=== PATIENT | female | born 1945 | race Caucasian/White ===

== ENCOUNTER 2023-04-19 15:10 | Inpatient (IN) | payer MEDICARE, OTHER ==
[~2023-04-19] VITALS: Ht 160 cm; Wt 61.7 kg
[~2023-04-19 15:10] MED LIST: ACET-868 PO; ASPI-807 PO; CRAN450C PO; DOCU100C58 PO; GLIP5TAB13 PO; MAGN400O6 PO; METF500T PO; SIMV-46 PO
[2023-04-19 16:56] LABS: BASOPHILS # (AUTO) 0.1 K/uL (0.0-0.2); EOSINOPHILS # (AUTO) 0.3 K/uL (0.0-0.7); EOSINOPHILS % (AUTO) 4.8 % (0.0-6.0); HEMATOCRIT 37 % (33-45); HEMOGLOBIN 12.2 g/dL (11.5-14.8); LYMPHOCYTES # (AUTO) 1.8 K/uL (0.8-4.8); LYMPHOCYTES % (AUTO) 33.7 % (20.0-44.0); MEAN CORPUSCULAR HEMOGLOBIN 28 PG (26.0-33.0); MEAN CORPUSCULAR HGB CONC 33 g/dl (31.0-36.0); MEAN CORPUSCULAR VOLUME 82 fL (82-100); MONOCYTES # (AUTO) 0.7 K/uL (0.1-1.30); MONOCYTES % (AUTO) 12.1 % (2.0-12.0); NEUTROPHILS # (AUTO) 2.6 K/uL (1.8-8.9); NEUTROPHILS % (AUTO) 48.4 % (43.0-81.0); PLATELET COUNT (AUTO) 239 K/uL (150-450); RED BLOOD CELL COUNT(AUTO) 4.44 MIL/uL (4.0-5.2); RED CELL DISTRIBUTION WIDTH 15.2 % (11.5-15.0); WHITE BLOOD COUNT (AUTO) 5.5 K/uL (4.3-11.0)
[2023-04-19 17:13] LABS: CALCIUM, SERUM 9.2 mg/dL (8.5-10.1); CARBON DIOXIDE 23 mmol/L (21-32); CHLORIDE 91 mmol/L (98-107); CREATININE 0.6 mg/dL (0.6-1.3); GLUCOSE 103 mg/dL (74-106); POTASSIUM 4.2 mmol/L (3.5-5.1); SODIUM SERUM 121 mmol/L (136-145); UREA NITROGEN, BLOOD 9 mg/dL (7-18)
[2023-04-19 17:27] LABS: ALANINE AMINOTRANSFERASE 10 U/L (12-78); ALBUMIN 3.4 g/dL (3.4-5.0); ALKALINE PHOSPHATASE 53 U/L (46-116); ASPARTATE AMINOTRANSFERASE 12 U/L (15-37); BILIRUBIN,DIRECT 0.1 mg/dL (0.0-0.2); BILIRUBIN,TOTAL 0.4 mg/dL (0.2-1.0); TOTAL PROTEIN, SERUM 6.7 g/dL (6.4-8.2)
[2023-04-19 17:28] LABS: ACETAMINOPHEN <10 ug/ml (10-30); ALCOHOL, BLOOD < 3 mg/dL (0-10); SALICYLATE < 2.3 mg/dL (2.8-20.0)
[2023-04-19] MEDS ORDERED: IV NS 0.9% 1,000 ML IV ONE (18:00)
[2023-04-19] MEDS ORDERED: MORPHINE SULFATE INJ 2 MG/ML DISP.SYRIN IV PRN (18:30)
[2023-04-19] MEDS ORDERED: IV NS 0.9% 1,000 ML IV SCH (18:30)
[2023-04-19] MEDS ORDERED: DEXTROSE 50%-WATER 50 ML DISP.SYRIN IV PRN (18:30)
[2023-04-19] MEDS ORDERED: ONDANSETRON HCL/PF 4 MG/2 ML VIAL IVP PRN (18:30)
[2023-04-19] MEDS ORDERED: MAGNESIUM HYDROXIDE 30 ML UDC PO PRN (18:30)
[2023-04-19] MEDS ORDERED: ACETAMINOPHEN 325 MG TABLET PO PRN (18:30)
[2023-04-19] MEDS: BLOOD SUGAR DIAGNOSTIC 1 EACH STRIP IN SCH (22:29)
[2023-04-19] MEDS: ENOXAPARIN SODIUM 40 MG/0.4 ML DISP.SYRIN SQ SCH (22:30)
[2023-04-19 22:35] VITALS: BP 190/100; TEMP 98; O2SAT 98
[2023-04-19] MEDS: hydrALAZINE HCL IV 20 MG VIAL IV PRN (22:37)
[2023-04-20] VITALS: BP 160/75; TEMP 98; O2SAT 98
[2023-04-20 04:00] VITALS: BP 178/79; TEMP 98; O2SAT 99
[2023-04-20] MEDS: hydrALAZINE HCL IV 20 MG VIAL IV PRN (04:40)
[2023-04-20 06:00] VITALS: BP 158/68
[2023-04-20 06:43] LABS: BASOPHILS % (AUTO) 0.7 % (0.0-2.0); EOSINOPHILS # (AUTO) 0.1 K/uL (0.0-0.7); EOSINOPHILS % (AUTO) 1.7 % (0.0-6.0); HEMATOCRIT 40 % (33-45); HEMOGLOBIN 13.6 g/dL (11.5-14.8); LYMPHOCYTES # (AUTO) 1.3 K/uL (0.8-4.8); LYMPHOCYTES % (AUTO) 16.7 % (20.0-44.0); MEAN CORPUSCULAR HEMOGLOBIN 28 PG (26.0-33.0); MEAN CORPUSCULAR HGB CONC 34 g/dl (31.0-36.0); MEAN CORPUSCULAR VOLUME 83 fL (82-100); MONOCYTES # (AUTO) 0.8 K/uL (0.1-1.30); MONOCYTES % (AUTO) 10.2 % (2.0-12.0); NEUTROPHILS # (AUTO) 5.3 K/uL (1.8-8.9); NEUTROPHILS % (AUTO) 70.7 % (43.0-81.0); PLATELET COUNT (AUTO) 244 K/uL (150-450); RED BLOOD CELL COUNT(AUTO) 4.85 MIL/uL (4.0-5.2); RED CELL DISTRIBUTION WIDTH 15.5 % (11.5-15.0); WHITE BLOOD COUNT (AUTO) 7.5 K/uL (4.3-11.0)
[2023-04-20 07:04] LABS: ALBUMIN 3.5 g/dL (3.4-5.0); BILIRUBIN,TOTAL 0.6 mg/dL (0.2-1.0); CREATININE 0.6 mg/dL (0.6-1.3); MAGNESIUM 1.9 mg/dL (1.8-2.4); POTASSIUM 3.5 mmol/L (3.5-5.1); TOTAL PROTEIN, SERUM 6.9 g/dL (6.4-8.2)
[2023-04-20] MEDS ORDERED: IV D5/0.45 NACL 1,000 ML IV PRN (07:30)
[2023-04-20 08:00] VITALS: BP 153/81; TEMP 98.1; O2SAT 93
[2023-04-20] MEDS: BLOOD SUGAR DIAGNOSTIC 1 EACH STRIP IN SCH ×4 (08:00→21:30)
[2023-04-20] MEDS: INSULIN REGULAR, HUMAN 100 UNIT/ML 3 ML VIAL SQ PRN ×3 (08:01→17:11)
[2023-04-20] MEDS: ATORVASTATIN 10 MG TABLET PO SCH (08:10)
[2023-04-20] MEDS: ASPIRIN EC 81 MG TABLET.DR PO SCH (08:10)
[2023-04-20] MEDS ORDERED: CRAN425C6 PO (09:02)
[2023-04-20] MEDS ORDERED: LAMO25TA5 PO (09:02)
[2023-04-20] MEDS ORDERED: CHOL100043 PO (09:02)
[2023-04-20] MEDS ORDERED: POTA8TAB3 PO (09:02)
[2023-04-20] MEDS ORDERED: SENN-261 PO (09:02)
[2023-04-20] MEDS ORDERED: LORA-259 PO (09:02)
[2023-04-20] MEDS ORDERED: ATOR10TA PO (09:02)
[2023-04-20] MEDS ORDERED: BISA10SU11 RC (09:02)
[2023-04-20] MEDS ORDERED: BENZ0.5T43 PO (09:02)
[2023-04-20] MEDS ORDERED: FLUD0.1T PO (09:02)
[2023-04-20] MEDS ORDERED: ACET-868 PO (09:02)
[2023-04-20] MEDS ORDERED: SODI100037 PO (09:02)
[2023-04-20] MEDS ORDERED: RISP1TAB7 PO (09:02)
[2023-04-20] MEDS ORDERED: PYRI-6 PO (09:02)
[2023-04-20] MEDS ORDERED: MAGN400T8 PO (09:02)
[2023-04-20] MEDS: ENOXAPARIN SODIUM 40 MG/0.4 ML DISP.SYRIN SQ SCH (17:44)
[2023-04-20 21:03] VITALS: BP 143/74; TEMP 98.1; O2SAT 93
[2023-04-21] MEDS: CLONIDINE HCL 0.1 MG TABLET PO PRN ×2 (03:58→15:25)
[2023-04-21 05:06] VITALS: BP 132/78; TEMP 97.8; O2SAT 93
[2023-04-21 06:56] LABS: BASOPHILS # (AUTO) 0.1 K/uL (0.0-0.2); BASOPHILS % (AUTO) 0.9 % (0.0-2.0); EOSINOPHILS # (AUTO) 0.1 K/uL (0.0-0.7); EOSINOPHILS % (AUTO) 1.8 % (0.0-6.0); HEMATOCRIT 37 % (33-45); HEMOGLOBIN 12.5 g/dL (11.5-14.8); LYMPHOCYTES # (AUTO) 1.1 K/uL (0.8-4.8); LYMPHOCYTES % (AUTO) 18.9 % (20.0-44.0); MEAN CORPUSCULAR HEMOGLOBIN 28 PG (26.0-33.0); MEAN CORPUSCULAR HGB CONC 34 g/dl (31.0-36.0); MEAN CORPUSCULAR VOLUME 83 fL (82-100); MONOCYTES # (AUTO) 0.8 K/uL (0.1-1.30); MONOCYTES % (AUTO) 13.7 % (2.0-12.0); NEUTROPHILS # (AUTO) 3.9 K/uL (1.8-8.9); NEUTROPHILS % (AUTO) 64.7 % (43.0-81.0); PLATELET COUNT (AUTO) 224 K/uL (150-450); RED BLOOD CELL COUNT(AUTO) 4.49 MIL/uL (4.0-5.2); RED CELL DISTRIBUTION WIDTH 15.8 % (11.5-15.0)
[2023-04-21 07:19] LABS: CALCIUM, SERUM 9.2 mg/dL (8.5-10.1); CREATININE 0.6 mg/dL (0.6-1.3); MAGNESIUM 2.1 mg/dL (1.8-2.4); PHOSPHORUS 2.8 mg/dL (2.5-4.9); POTASSIUM 3.5 mmol/L (3.5-5.1)
[2023-04-21] MEDS: BLOOD SUGAR DIAGNOSTIC 1 EACH STRIP IN SCH ×3 (08:09→17:22)
[2023-04-21] MEDS: INSULIN REGULAR, HUMAN 100 UNIT/ML 3 ML VIAL SQ PRN ×3 (08:10→17:23)
[2023-04-21] MEDS: ATORVASTATIN 10 MG TABLET PO SCH (08:15)
[2023-04-21] MEDS: ASPIRIN EC 81 MG TABLET.DR PO SCH (08:15)
[2023-04-21 16:50] VITALS: BP 172/82; TEMP 98.2; O2SAT 95
[2023-04-21 16:57] VITALS: BP 172/82
[2023-04-21] MEDS ORDERED: CLONIDINE HCL 0.3 MG/24H PTWK 1 EA PATCH TD SCH (17:00)
[2023-04-21] MEDS ORDERED: hydrALAZINE HCL 50 MG TABLET PO PRN (17:00)
[2023-04-21] MEDS: ENOXAPARIN SODIUM 40 MG/0.4 ML DISP.SYRIN SQ SCH ×2 (17:16→17:24)
[2023-04-22] MEDS ORDERED: ASPI-1420 PO (08:04)
[2023-04-22] MEDS ORDERED: BLOO-668 IN (08:04)
[2023-04-22] MEDS ORDERED: ENOX40DI SQ (08:04)
[2023-04-22] MEDS ORDERED: CLON0.1T PO (08:04)
[2023-04-22] MEDS ORDERED: DEXT50DI8 IV (08:04)
[2023-04-22] MEDS ORDERED: INSU100V3 SQ (08:04)
== END 2023-04-21 18:46 | DRG 641 ==
LOC: ER 16:22 → TELE1 21:01 → MEDSG1 04-20 09:40 → GPS 04-21 15:39
PROVIDERS: ADMIT Internal Medicine; ATTEND Internal Medicine
DX: E87.1 Hypo-osmolality and hyponatremia (principal); E86.1 Hypovolemia; E78.5 Hyperlipidemia, unspecified; Z79.82 Long term (current) use of aspirin; Z79.84 Long term (current) use of oral hypoglycemic drugs; E11.9 Type 2 diabetes mellitus without complications; F79 Unspecified intellectual disabilities; Z88.0 Allergy status to penicillin; Z73.6 Limitation of activities due to disability
CPT/HCPCS: 36415; 71045-TC; 80048-TC; 80053-TC; 80076-TC; 82962-TC; 83735-TC; 84100-TC; 84295-TC; 85025-TC; 87081-TC; A4223; G0378; G0480; J0360; J1650; J1815; J7030

== ENCOUNTER 2023-04-21 19:13 | Inpatient (IN) | payer MEDICARE, OTHER ==
[~2023-04-21] VITALS: Ht 160 cm; Wt 61.7 kg
[~2023-04-21 19:13] MED LIST changes: +ATOR10TA PO; +BENZ0.5T43 PO; +BISA10SU11 RC; +CHOL100043 PO; +CRAN425C6 PO; -CRAN450C PO; -DOCU100C58 PO; +FLUD0.1T PO; -GLIP5TAB13 PO; +LAMO25TA5 PO; +LORA-259 PO; +MAGN400T8 PO; +POTA8TAB3 PO; +PYRI-6 PO; +RISP1TAB7 PO; +SENN-261 PO; -SIMV-46 PO; +SODI100037 PO
[2023-04-21] MEDS ORDERED: ACETAMINOPHEN 325 MG TABLET PO PRN (20:00)
[2023-04-21] MEDS ORDERED: MAG HYDROX/AL HYDROX/SIMETH 30 ML UDC PO PRN (20:00)
[2023-04-21] MEDS ORDERED: LORAZEPAM 0.5 MG TABLET PO PRN (20:00)
[2023-04-21] MEDS ORDERED: MAGNESIUM HYDROXIDE 30 ML UDC PO PRN (20:00)
[2023-04-21] MEDS ORDERED: BLOOD SUGAR DIAGNOSTIC 1 EACH STRIP IN ONE (20:00)
[2023-04-21 20:16] VITALS: BP 197/90; TEMP 98.4; O2SAT 96
[2023-04-21] MEDS: CLONIDINE HCL 0.1 MG TABLET PO PRN (20:22)
[2023-04-21] MEDS: ZOLPIDEM TARTRATE 5 MG TABLET PO PRN (22:31)
[2023-04-22 07:05] LABS: ALBUMIN 3.1 g/dL (3.4-5.0); BILIRUBIN,TOTAL 0.6 mg/dL (0.2-1.0); CREATININE 0.6 mg/dL (0.6-1.3); POTASSIUM 3.7 mmol/L (3.5-5.1); TOTAL PROTEIN, SERUM 6.3 g/dL (6.4-8.2)
[2023-04-22] MEDS: CLONIDINE HCL 0.1 MG TABLET PO PRN ×2 (07:11→20:18)
[2023-04-22 07:21] LABS: CHOLESTEROL 175 mg/dL (<200); HDL CHOLESTEROL 63 mg/dL (40-60); LDL 91 mg/dL (0-99); TRIGLYCERIDES 64 mg/dL (30-150)
[2023-04-22 08:00] VITALS: BP_SYST 154; BP_SYST 207; BP_DIAS 101; BP_DIAS 94; TEMP 97.8; O2SAT 97
[2023-04-22] MEDS ORDERED: ENOX40DI SQ (08:04)
[2023-04-22] MEDS ORDERED: BLOO-668 IN (08:04)
[2023-04-22] MEDS ORDERED: DEXT50DI8 IV (08:04)
[2023-04-22] MEDS ORDERED: ASPI-1420 PO (08:04)
[2023-04-22] MEDS ORDERED: INSU100V3 SQ (08:04)
[2023-04-22] MEDS ORDERED: CLON0.1T PO (08:04)
[2023-04-22] MEDS: LamoTRIgine 25 MG TABLET PO SCH ×2 (10:22→21:15)
[2023-04-22] MEDS ORDERED: BISACODYL SUPP (10 MG) 10 MG/SUPP.RECT SUPP.RECT RC PRN (10:30)
[2023-04-22] MEDS ORDERED: MAGNESIUM HYDROXIDE 30 ML UDC PO PRN (10:30)
[2023-04-22] MEDS ORDERED: ACETAMINOPHEN 325 MG TABLET PO PRN (10:30)
[2023-04-22] MEDS ORDERED: DEXTROSE 50%-WATER 50 ML DISP.SYRIN IV PRN (10:30)
[2023-04-22] MEDS: SODIUM CHLORIDE 1000 MG TABLET PO SCH ×3 (10:40→17:18)
[2023-04-22] MEDS: BLOOD SUGAR DIAGNOSTIC 1 EACH STRIP IN SCH ×3 (12:08→21:19)
[2023-04-22 16:00] VITALS: BP 152/78; TEMP 97.8; O2SAT 97
[2023-04-22] MEDS: METFORMIN 500 MG TABLET PO SCH (17:16)
[2023-04-22] MEDS: risperiDONE 1 MG TABLET PO SCH (17:17)
[2023-04-22] MEDS: BENZTROPINE MESYLATE (1 MG) 1 MG TABLET PO SCH (17:17)
[2023-04-22] MEDS: MAGNESIUM OXIDE 400 MG TABLET PO SCH (17:17)
[2023-04-22 20:20] VITALS: BP 181/75; TEMP 97.4; O2SAT 98
[2023-04-22 20:40] VITALS: BP 144/79; O2SAT 98
[2023-04-22] MEDS ORDERED: risperiDONE 1 MG TABLET PO SCH (21:00)
[2023-04-22] MEDS ORDERED: LamoTRIgine 25 MG TABLET PO SCH (21:00)
[2023-04-22] MEDS: SENNOSIDES 8.6 MG TABLET PO SCH (21:14)
[2023-04-22] MEDS: ZOLPIDEM TARTRATE 5 MG TABLET PO PRN (21:17)
[2023-04-23 08:00] VITALS: BP 160/88; TEMP 97.5; O2SAT 96
[2023-04-23] MEDS: BLOOD SUGAR DIAGNOSTIC 1 EACH STRIP IN SCH ×4 (08:09→21:04)
[2023-04-23] MEDS: FLUDROCORTISONE 0.1 MG TABLET PO SCH (09:05)
[2023-04-23] MEDS: risperiDONE 1 MG TABLET PO SCH ×2 (09:05→16:27)
[2023-04-23] MEDS: METFORMIN 500 MG TABLET PO SCH ×2 (09:05→16:27)
[2023-04-23] MEDS: ATORVASTATIN 10 MG TABLET PO SCH (09:05)
[2023-04-23] MEDS: ASPIRIN EC 81 MG TABLET.DR PO SCH (09:05)
[2023-04-23] MEDS: SODIUM CHLORIDE 1000 MG TABLET PO SCH ×3 (09:05→16:27)
[2023-04-23] MEDS: PYRIDOXINE HCL 50 MG TABLET PO SCH (09:06)
[2023-04-23] MEDS: LamoTRIgine 25 MG TABLET PO SCH ×2 (09:06→21:01)
[2023-04-23] MEDS: BENZTROPINE MESYLATE (1 MG) 1 MG TABLET PO SCH ×2 (09:08→16:26)
[2023-04-23 16:00] VITALS: BP 152/75; TEMP 98.1; O2SAT 96; O2SAT 97
[2023-04-23] MEDS: MAGNESIUM OXIDE 400 MG TABLET PO SCH (16:26)
[2023-04-23 20:00] VITALS: BP 160/83; TEMP 98.2; O2SAT 99
[2023-04-23] MEDS: SENNOSIDES 8.6 MG TABLET PO SCH (21:02)
[2023-04-24] MEDS: BLOOD SUGAR DIAGNOSTIC 1 EACH STRIP IN SCH ×4 (07:58→21:46)
[2023-04-24 08:00] VITALS: BP 169/89; TEMP 98.7; O2SAT 98
[2023-04-24] MEDS: SODIUM CHLORIDE 1000 MG TABLET PO SCH ×3 (08:22→17:05)
[2023-04-24] MEDS: BENZTROPINE MESYLATE (1 MG) 1 MG TABLET PO SCH ×2 (08:22→17:05)
[2023-04-24] MEDS: PYRIDOXINE HCL 50 MG TABLET PO SCH (08:22)
[2023-04-24] MEDS: ATORVASTATIN 10 MG TABLET PO SCH (08:22)
[2023-04-24] MEDS: METFORMIN 500 MG TABLET PO SCH ×2 (08:22→17:04)
[2023-04-24] MEDS: LamoTRIgine 25 MG TABLET PO SCH ×2 (08:22→21:08)
[2023-04-24] MEDS: ASPIRIN EC 81 MG TABLET.DR PO SCH (08:22)
[2023-04-24] MEDS: risperiDONE 1 MG TABLET PO SCH ×2 (08:23→17:04)
[2023-04-24] MEDS: FLUDROCORTISONE 0.1 MG TABLET PO SCH (08:23)
[2023-04-24 16:00] VITALS: BP 152/75; TEMP 98.7; O2SAT 99
[2023-04-24] MEDS: MAGNESIUM OXIDE 400 MG TABLET PO SCH (17:05)
[2023-04-24 20:00] VITALS: BP 154/78; TEMP 97.7; O2SAT 97
[2023-04-24 20:43] VITALS: BP 154/78; TEMP 97.7; O2SAT 97
[2023-04-24] MEDS: SENNOSIDES 8.6 MG TABLET PO SCH (21:08)
[2023-04-25] MEDS: BLOOD SUGAR DIAGNOSTIC 1 EACH STRIP IN SCH ×4 (07:38→21:12)
[2023-04-25 08:00] VITALS: BP 166/76; TEMP 97.8; O2SAT 96
[2023-04-25] MEDS: ATORVASTATIN 10 MG TABLET PO SCH (08:25)
[2023-04-25] MEDS: SODIUM CHLORIDE 1000 MG TABLET PO SCH ×3 (08:25→17:20)
[2023-04-25] MEDS: ASPIRIN EC 81 MG TABLET.DR PO SCH (08:25)
[2023-04-25] MEDS: METFORMIN 500 MG TABLET PO SCH ×2 (08:26→17:20)
[2023-04-25] MEDS: risperiDONE 1 MG TABLET PO SCH ×2 (08:26→17:20)
[2023-04-25] MEDS: LamoTRIgine 25 MG TABLET PO SCH ×2 (08:26→20:49)
[2023-04-25] MEDS: FLUDROCORTISONE 0.1 MG TABLET PO SCH (08:26)
[2023-04-25] MEDS: PYRIDOXINE HCL 50 MG TABLET PO SCH (08:26)
[2023-04-25] MEDS: BENZTROPINE MESYLATE (1 MG) 1 MG TABLET PO SCH ×2 (08:26→17:20)
[2023-04-25] MEDS: CLONIDINE HCL 0.1 MG TABLET PO PRN (09:23)
[2023-04-25] MEDS: AMLODIPINE BESYLATE 5 MG TABLET PO SCH (12:06)
[2023-04-25 16:00] VITALS: BP 165/74; TEMP 97.9; O2SAT 97
[2023-04-25] MEDS: MAGNESIUM OXIDE 400 MG TABLET PO SCH (17:20)
[2023-04-25] MEDS: SENNOSIDES 8.6 MG TABLET PO SCH (21:12)
[2023-04-26] MEDS: BLOOD SUGAR DIAGNOSTIC 1 EACH STRIP IN SCH ×4 (07:30→21:17)
[2023-04-26 08:00] VITALS: BP 194/99; TEMP 97.8; O2SAT 96
[2023-04-26] MEDS: METFORMIN 500 MG TABLET PO SCH ×2 (08:38→16:15)
[2023-04-26] MEDS: LamoTRIgine 25 MG TABLET PO SCH ×2 (08:38→21:17)
[2023-04-26] MEDS: PYRIDOXINE HCL 50 MG TABLET PO SCH (08:38)
[2023-04-26] MEDS: BENZTROPINE MESYLATE (1 MG) 1 MG TABLET PO SCH ×2 (08:39→16:15)
[2023-04-26] MEDS: SODIUM CHLORIDE 1000 MG TABLET PO SCH ×3 (08:39→16:15)
[2023-04-26] MEDS: AMLODIPINE BESYLATE 5 MG TABLET PO SCH (08:39)
[2023-04-26] MEDS: FLUDROCORTISONE 0.1 MG TABLET PO SCH (08:39)
[2023-04-26] MEDS: ASPIRIN EC 81 MG TABLET.DR PO SCH (08:39)
[2023-04-26] MEDS: risperiDONE 1 MG TABLET PO SCH ×3 (08:39→16:15)
[2023-04-26] MEDS: ATORVASTATIN 10 MG TABLET PO SCH (08:39)
[2023-04-26] MEDS: CLONIDINE HCL 0.1 MG TABLET PO PRN (08:40)
[2023-04-26 16:00] VITALS: BP 163/79; TEMP 97.6; O2SAT 97
[2023-04-26] MEDS: MAGNESIUM OXIDE 400 MG TABLET PO SCH (17:38)
[2023-04-26 20:00] VITALS: BP 137/76; TEMP 97.6; O2SAT 96
[2023-04-26] MEDS: SENNOSIDES 8.6 MG TABLET PO SCH (21:17)
[2023-04-27] MEDS: BLOOD SUGAR DIAGNOSTIC 1 EACH STRIP IN SCH ×2 (07:30→11:50)
[2023-04-27 08:00] VITALS: BP 169/94; TEMP 98.6; O2SAT 98
[2023-04-27] MEDS: ASPIRIN EC 81 MG TABLET.DR PO SCH (08:08)
[2023-04-27] MEDS: FLUDROCORTISONE 0.1 MG TABLET PO SCH (08:08)
[2023-04-27] MEDS: SODIUM CHLORIDE 1000 MG TABLET PO SCH ×3 (08:08→17:01)
[2023-04-27] MEDS: METFORMIN 500 MG TABLET PO SCH ×2 (08:08→16:59)
[2023-04-27] MEDS: risperiDONE 1 MG TABLET PO SCH ×3 (08:09→17:00)
[2023-04-27] MEDS: BENZTROPINE MESYLATE (1 MG) 1 MG TABLET PO SCH ×2 (08:09→16:59)
[2023-04-27] MEDS: AMLODIPINE BESYLATE 5 MG TABLET PO SCH (08:09)
[2023-04-27] MEDS: PYRIDOXINE HCL 50 MG TABLET PO SCH (08:09)
[2023-04-27] MEDS: LamoTRIgine 25 MG TABLET PO SCH ×2 (08:09→20:57)
[2023-04-27] MEDS: CLONIDINE HCL 0.1 MG TABLET PO PRN (08:10)
[2023-04-27] MEDS: ATORVASTATIN 10 MG TABLET PO SCH (08:11)
[2023-04-27 16:00] VITALS: BP 155/73; TEMP 98; O2SAT 97
[2023-04-27] MEDS: MAGNESIUM OXIDE 400 MG TABLET PO SCH (17:01)
[2023-04-27 20:00] VITALS: BP 133/72; TEMP 98; O2SAT 98
[2023-04-27] MEDS: SENNOSIDES 8.6 MG TABLET PO SCH (21:51)
[2023-04-28 08:00] VITALS: BP 177/85; TEMP 97.8; O2SAT 98
[2023-04-28] MEDS: SODIUM CHLORIDE 1000 MG TABLET PO SCH ×3 (08:53→16:41)
[2023-04-28] MEDS: PYRIDOXINE HCL 50 MG TABLET PO SCH (08:53)
[2023-04-28] MEDS: METFORMIN 500 MG TABLET PO SCH ×2 (08:53→16:41)
[2023-04-28] MEDS: risperiDONE 1 MG TABLET PO SCH ×3 (08:53→16:41)
[2023-04-28] MEDS: ATORVASTATIN 10 MG TABLET PO SCH (08:54)
[2023-04-28] MEDS: BENZTROPINE MESYLATE (1 MG) 1 MG TABLET PO SCH ×2 (08:54→16:41)
[2023-04-28] MEDS: FLUDROCORTISONE 0.1 MG TABLET PO SCH (08:54)
[2023-04-28] MEDS: LamoTRIgine 25 MG TABLET PO SCH ×2 (08:54→21:44)
[2023-04-28] MEDS: AMLODIPINE BESYLATE 5 MG TABLET PO SCH (08:54)
[2023-04-28] MEDS: CLONIDINE HCL 0.1 MG TABLET PO PRN (08:55)
[2023-04-28] MEDS: ASPIRIN EC 81 MG TABLET.DR PO SCH (08:55)
[2023-04-28 16:00] VITALS: BP 150/74; TEMP 97.8; O2SAT 97
[2023-04-28] MEDS: MAGNESIUM OXIDE 400 MG TABLET PO SCH (17:09)
[2023-04-28 20:00] VITALS: BP 148/76; TEMP 97.6; O2SAT 96
[2023-04-28] MEDS: SENNOSIDES 8.6 MG TABLET PO SCH (21:44)
[2023-04-29 08:00] VITALS: BP 182/75; TEMP 98.1; O2SAT 98
[2023-04-29] MEDS: PYRIDOXINE HCL 50 MG TABLET PO SCH (08:39)
[2023-04-29] MEDS: ATORVASTATIN 10 MG TABLET PO SCH (08:39)
[2023-04-29] MEDS: BENZTROPINE MESYLATE (1 MG) 1 MG TABLET PO SCH ×2 (08:39→16:18)
[2023-04-29] MEDS: AMLODIPINE BESYLATE 5 MG TABLET PO SCH (08:40)
[2023-04-29] MEDS: LamoTRIgine 25 MG TABLET PO SCH ×2 (08:40→21:16)
[2023-04-29] MEDS: risperiDONE 1 MG TABLET PO SCH ×3 (08:40→16:18)
[2023-04-29] MEDS: FLUDROCORTISONE 0.1 MG TABLET PO SCH (08:40)
[2023-04-29] MEDS: ASPIRIN EC 81 MG TABLET.DR PO SCH (08:40)
[2023-04-29] MEDS: METFORMIN 500 MG TABLET PO SCH ×2 (08:40→16:19)
[2023-04-29] MEDS: SODIUM CHLORIDE 1000 MG TABLET PO SCH ×3 (08:44→16:19)
[2023-04-29 16:00] VITALS: BP 162/87; TEMP 97.9; O2SAT 98
[2023-04-29] MEDS: MAGNESIUM OXIDE 400 MG TABLET PO SCH (16:32)
[2023-04-29 20:46] VITALS: BP 161/74; TEMP 97.3; O2SAT 96
[2023-04-29] MEDS: SENNOSIDES 8.6 MG TABLET PO SCH (21:16)
[2023-04-30 08:00] VITALS: BP 163/84; TEMP 97.9; O2SAT 98
[2023-04-30] MEDS: LamoTRIgine 25 MG TABLET PO SCH ×2 (08:51→20:53)
[2023-04-30] MEDS: ASPIRIN EC 81 MG TABLET.DR PO SCH (08:51)
[2023-04-30] MEDS: METFORMIN 500 MG TABLET PO SCH ×2 (08:51→17:05)
[2023-04-30] MEDS: FLUDROCORTISONE 0.1 MG TABLET PO SCH (08:51)
[2023-04-30] MEDS: risperiDONE 1 MG TABLET PO SCH ×3 (08:51→17:05)
[2023-04-30] MEDS: ATORVASTATIN 10 MG TABLET PO SCH (08:52)
[2023-04-30] MEDS: SODIUM CHLORIDE 1000 MG TABLET PO SCH ×3 (08:52→17:05)
[2023-04-30] MEDS: AMLODIPINE BESYLATE 5 MG TABLET PO SCH (08:52)
[2023-04-30] MEDS: BENZTROPINE MESYLATE (1 MG) 1 MG TABLET PO SCH ×2 (08:52→17:04)
[2023-04-30] MEDS: PYRIDOXINE HCL 50 MG TABLET PO SCH (08:52)
[2023-04-30 16:00] VITALS: BP 150/67; TEMP 98.6; O2SAT 98
[2023-04-30] MEDS: MAGNESIUM OXIDE 400 MG TABLET PO SCH (17:05)
[2023-04-30] MEDS: SENNOSIDES 8.6 MG TABLET PO SCH (21:01)
[2023-04-30 21:04] VITALS: BP 159/73; TEMP 98.4; O2SAT 98
[2023-05-01 08:00] VITALS: BP 120/88; TEMP 97.9; O2SAT 98
[2023-05-01] MEDS: LamoTRIgine 25 MG TABLET PO SCH ×2 (09:14→21:08)
[2023-05-01] MEDS: ATORVASTATIN 10 MG TABLET PO SCH (09:15)
[2023-05-01] MEDS: BENZTROPINE MESYLATE (1 MG) 1 MG TABLET PO SCH ×3 (09:15→17:15)
[2023-05-01] MEDS: PYRIDOXINE HCL 50 MG TABLET PO SCH (09:15)
[2023-05-01] MEDS: AMLODIPINE BESYLATE 5 MG TABLET PO SCH (09:15)
[2023-05-01] MEDS: SODIUM CHLORIDE 1000 MG TABLET PO SCH ×4 (09:15→17:15)
[2023-05-01] MEDS: FLUDROCORTISONE 0.1 MG TABLET PO SCH (09:15)
[2023-05-01] MEDS: ASPIRIN EC 81 MG TABLET.DR PO SCH (09:15)
[2023-05-01] MEDS: METFORMIN 500 MG TABLET PO SCH ×3 (09:15→17:15)
[2023-05-01] MEDS: risperiDONE 1 MG TABLET PO SCH ×5 (09:15→21:08)
[2023-05-01] MEDS: MAGNESIUM OXIDE 400 MG TABLET PO SCH ×2 (17:15→17:20)
[2023-05-01 20:09] VITALS: BP 157/77; TEMP 97.6; O2SAT 96
[2023-05-01] MEDS: SENNOSIDES 8.6 MG TABLET PO SCH (21:07)
[2023-05-01 22:00] VITALS: BP 137/72; TEMP 97.8; O2SAT 98
[2023-05-02 08:00] VITALS: BP 142/81; TEMP 97.6; O2SAT 97
[2023-05-02] MEDS: ASPIRIN EC 81 MG TABLET.DR PO SCH (08:14)
[2023-05-02] MEDS: risperiDONE 1 MG TABLET PO SCH ×3 (08:14→21:03)
[2023-05-02] MEDS: FLUDROCORTISONE 0.1 MG TABLET PO SCH (08:15)
[2023-05-02] MEDS: METFORMIN 500 MG TABLET PO SCH ×4 (08:15→17:16)
[2023-05-02] MEDS: AMLODIPINE BESYLATE 5 MG TABLET PO SCH (08:15)
[2023-05-02] MEDS: ATORVASTATIN 10 MG TABLET PO SCH (08:15)
[2023-05-02] MEDS: SODIUM CHLORIDE 1000 MG TABLET PO SCH ×3 (08:15→17:16)
[2023-05-02] MEDS: LamoTRIgine 25 MG TABLET PO SCH ×2 (08:15→21:03)
[2023-05-02] MEDS: PYRIDOXINE HCL 50 MG TABLET PO SCH (08:15)
[2023-05-02] MEDS: BENZTROPINE MESYLATE (1 MG) 1 MG TABLET PO SCH ×4 (08:16→17:16)
[2023-05-02 15:39] VITALS: BP 181/82
[2023-05-02] MEDS: CLONIDINE HCL 0.1 MG TABLET PO PRN (15:39)
[2023-05-02 17:00] VITALS: BP 133/82; TEMP 97.8; O2SAT 97
[2023-05-02] MEDS: MAGNESIUM OXIDE 400 MG TABLET PO SCH (17:16)
[2023-05-02 20:00] VITALS: BP 136/80; TEMP 97.6; O2SAT 98
[2023-05-02] MEDS: SENNOSIDES 8.6 MG TABLET PO SCH (21:03)
[2023-05-03 08:00] VITALS: BP 132/88; TEMP 97.7; O2SAT 96
[2023-05-03] MEDS: ATORVASTATIN 10 MG TABLET PO SCH (08:09)
[2023-05-03] MEDS: LamoTRIgine 25 MG TABLET PO SCH (08:09)
[2023-05-03] MEDS: FLUDROCORTISONE 0.1 MG TABLET PO SCH (08:09)
[2023-05-03] MEDS: SODIUM CHLORIDE 1000 MG TABLET PO SCH (08:09)
[2023-05-03] MEDS: PYRIDOXINE HCL 50 MG TABLET PO SCH (08:09)
[2023-05-03 08:10] VITALS: BP 132/88
[2023-05-03] MEDS: ASPIRIN EC 81 MG TABLET.DR PO SCH (08:10)
[2023-05-03] MEDS: risperiDONE 1 MG TABLET PO SCH (08:10)
[2023-05-03] MEDS: AMLODIPINE BESYLATE 5 MG TABLET PO SCH (08:10)
[2023-05-03] MEDS: BENZTROPINE MESYLATE (1 MG) 1 MG TABLET PO SCH (09:00)
[2023-05-03] MEDS: METFORMIN 500 MG TABLET PO SCH (09:00)
== END 2023-05-03 11:25 | DRG 885 ==
LOC: GPS 19:13
PROVIDERS: ADMIT Psychiatry & Neurology Psychiatry; ATTEND Internal Medicine
DX: F31.64 Bipolar disorder, current episode mixed, severe, with psychotic features (principal); E87.1 Hypo-osmolality and hyponatremia; E44.0 Moderate protein-calorie malnutrition; E27.40 Unspecified adrenocortical insufficiency; F29 Unspecified psychosis not due to a substance or known physiological condition; E11.9 Type 2 diabetes mellitus without complications; E78.5 Hyperlipidemia, unspecified; Z79.4 Long term (current) use of insulin; Z79.84 Long term (current) use of oral hypoglycemic drugs; Z79.82 Long term (current) use of aspirin; Z79.899 Other long term (current) drug therapy; Z79.01 Long term (current) use of anticoagulants; Z73.6 Limitation of activities due to disability; E88.09 Other disorders of plasma-protein metabolism, not elsewhere classified; E86.1 Hypovolemia; I10 Essential (primary) hypertension
CPT/HCPCS: 36415; 80053-TC; 80061-TC; 82962-TC; 83735-TC; 97112-TC; 97116-TC; 97530-TC

== ENCOUNTER 2023-09-25 12:47 | Inpatient (IN) | payer MEDICARE, OTHER ==
[~2023-09-25] VITALS: Ht 160 cm; Wt 65.3 kg
[~2023-09-25 12:47] MED LIST changes: +ASPI-1420 PO; -ASPI-807 PO; +BLOO-668 IN; +CLON0.1T PO; +DEXT50DI8 IV; +ENOX40DI SQ; +INSU100V3 SQ; -LORA-259 PO
[2023-09-25] MEDS ORDERED: AMLO-212 PO (13:02)
[2023-09-25] MEDS ORDERED: BENA20TA9 PO (13:02)
[2023-09-25] MEDS ORDERED: RISP0.2515 PO ×2 (13:02)
[2023-09-25] MEDS ORDERED: NA P133E RC (13:02)
[2023-09-25] MEDS ORDERED: ZOLP5TAB2 PO (13:02)
[2023-09-25] MEDS ORDERED: LORA-259 PO (13:02)
[2023-09-25] MEDS ORDERED: XEROFORM TD (13:02)
[2023-09-25] MEDS ORDERED: ASPI-1169 PO (13:02)
[2023-09-25 13:31] LABS: BASOPHILS # (AUTO) 0.1 K/uL (0.0-0.2); BASOPHILS % (AUTO) 0.6 % (0.0-2.0); EOSINOPHILS # (AUTO) 0.1 K/uL (0.0-0.7); EOSINOPHILS % (AUTO) 1.1 % (0.0-6.0); HEMATOCRIT 36 % (33-45); HEMOGLOBIN 11.9 g/dL (11.5-14.8); LYMPHOCYTES # (AUTO) 2.2 K/uL (0.8-4.8); LYMPHOCYTES % (AUTO) 17.4 % (20.0-44.0); MEAN CORPUSCULAR HEMOGLOBIN 28 PG (26.0-33.0); MEAN CORPUSCULAR HGB CONC 33 g/dl (31.0-36.0); MEAN CORPUSCULAR VOLUME 84 fL (82-100); MONOCYTES # (AUTO) 1.7 K/uL (0.1-1.30); MONOCYTES % (AUTO) 13.4 % (2.0-12.0); NEUTROPHILS # (AUTO) 8.4 K/uL (1.8-8.9); NEUTROPHILS % (AUTO) 67.5 % (43.0-81.0); PLATELET COUNT (AUTO) 208 K/uL (150-450); RED BLOOD CELL COUNT(AUTO) 4.25 MIL/uL (4.0-5.2); RED CELL DISTRIBUTION WIDTH 13.9 % (11.5-15.0); WHITE BLOOD COUNT (AUTO) 12.5 K/uL (4.3-11.0)
[2023-09-25 13:33] LABS: CALCIUM, SERUM 9.4 mg/dL (8.5-10.1); CREATININE 0.6 mg/dL (0.6-1.3); POTASSIUM 3.8 mmol/L (3.5-5.1)
[2023-09-25] MEDS ORDERED: MAGNESIUM HYDROXIDE 30 ML UDC PO PRN (15:30)
[2023-09-25] MEDS ORDERED: Z GUARD REMEDY 4 OZ OINT TP PRN (15:30)
[2023-09-25] MEDS ORDERED: IV NS 0.9% 1,000 ML IV PRN (15:30)
[2023-09-25] MEDS ORDERED: MORPHINE SULFATE INJ 2 MG/ML DISP.SYRIN IV PRN (15:30)
[2023-09-25] MEDS ORDERED: HYDROCODONE/APAP 5/325MG TABLET PO PRN (15:30)
[2023-09-25] MEDS ORDERED: DEXTROSE 50%-WATER 50 ML DISP.SYRIN IV PRN (15:30)
[2023-09-25] MEDS ORDERED: ONDANSETRON HCL/PF 4 MG/2 ML VIAL IVP PRN (15:30)
[2023-09-25 15:55] LABS: INR 0.95 (0.91-1.10); PARTIAL THROMBOPLASTIN TIME 25.6 SEC (24.3-34.3); PROTHROMBIN TIME 10.1 SECS (9.2-11.1)
[2023-09-25 16:01] LABS: PLATELET ESTIMATE ADEQUATE
[2023-09-25 16:02] LABS: OVALOCYTES 1+
[2023-09-25] MEDS: BLOOD SUGAR DIAGNOSTIC 1 EACH STRIP IN SCH ×2 (17:25→22:03)
[2023-09-25] MEDS ORDERED: INSULIN REGULAR, HUMAN 100 UNIT/ML 10 ML VIAL ONE (17:35)
[2023-09-25] MEDS: INSULIN REGULAR, HUMAN 100 UNIT/ML 3 ML VIAL SQ PRN ×2 (17:37→22:19)
[2023-09-25 20:00] VITALS: BP 156/81; TEMP 98.4; O2SAT 96
[2023-09-26] MEDS: BLOOD SUGAR DIAGNOSTIC 1 EACH STRIP IN SCH ×4 (06:35→23:31)
[2023-09-26 08:00] VITALS: BP 187/93; TEMP 97.9; O2SAT 96
[2023-09-26] MEDS: ACETAMINOPHEN 325 MG TABLET PO PRN ×2 (08:07→18:39)
[2023-09-26] MEDS: PANTOPRAZOLE 40 MG TABLET.DR PO SCH (08:07)
[2023-09-26] MEDS ORDERED: ZOLPIDEM TARTRATE 5 MG TABLET PO PRN (10:30)
[2023-09-26] MEDS ORDERED: LORAZEPAM 1 MG TABLET PO PRN (10:30)
[2023-09-26] MEDS ORDERED: BISACODYL SUPP (10 MG) 10 MG/SUPP.RECT SUPP.RECT RC PRN (10:30)
[2023-09-26 12:34] LABS: BASOPHILS % (AUTO) 0.4 % (0.0-2.0); EOSINOPHILS # (AUTO) 0.1 K/uL (0.0-0.7); EOSINOPHILS % (AUTO) 1.4 % (0.0-6.0); HEMATOCRIT 33 % (33-45); HEMOGLOBIN 11.3 g/dL (11.5-14.8); LYMPHOCYTES # (AUTO) 1.7 K/uL (0.8-4.8); LYMPHOCYTES % (AUTO) 19.7 % (20.0-44.0); MEAN CORPUSCULAR HEMOGLOBIN 28 PG (26.0-33.0); MEAN CORPUSCULAR HGB CONC 34 g/dl (31.0-36.0); MEAN CORPUSCULAR VOLUME 83 fL (82-100); MONOCYTES # (AUTO) 1.2 K/uL (0.1-1.30); MONOCYTES % (AUTO) 13.7 % (2.0-12.0); NEUTROPHILS # (AUTO) 5.5 K/uL (1.8-8.9); NEUTROPHILS % (AUTO) 64.8 % (43.0-81.0); PLATELET COUNT (AUTO) 216 K/uL (150-450); RED BLOOD CELL COUNT(AUTO) 3.98 MIL/uL (4.0-5.2); RED CELL DISTRIBUTION WIDTH 13.6 % (11.5-15.0); WHITE BLOOD COUNT (AUTO) 8.4 K/uL (4.3-11.0)
[2023-09-26 12:38] LABS: CARBON DIOXIDE 27 mmol/L (21-32); CHLORIDE 97 mmol/L (98-107); CREATININE 0.6 mg/dL (0.6-1.3); GLUCOSE 161 mg/dL (74-106); MAGNESIUM 1.7 mg/dL (1.8-2.4); PHOSPHORUS 3.5 mg/dL (2.5-4.9); POTASSIUM 2.9 mmol/L (3.5-5.1); SODIUM SERUM 132 mmol/L (136-145); UREA NITROGEN, BLOOD 9 mg/dL (7-18)
[2023-09-26 12:46] LABS: THYROID STIMULATING HORMONE 1.982 uIU/mL (0.358-3.74)
[2023-09-26] MEDS: SODIUM CHLORIDE 1000 MG TABLET PO SCH ×2 (13:14→16:19)
[2023-09-26] MEDS ORDERED: POTASSIUM CHLORIDE 10 MEQ TABLET.SA PO SCH (15:30)
[2023-09-26 16:00] VITALS: BP 174/94; TEMP 98.4; O2SAT 95
[2023-09-26] MEDS ORDERED: MAGNESIUM OXIDE 400 MG TABLET PO ONE (16:00)
[2023-09-26] MEDS: risperiDONE 1 MG TABLET PO SCH ×2 (16:19→21:26)
[2023-09-26] MEDS: POTASSIUM CHLORIDE 10 MEQ TABLET.SA PO SCH ×2 (16:19→18:33)
[2023-09-26] MEDS: ENOXAPARIN SODIUM 40 MG/0.4 ML DISP.SYRIN SQ SCH (16:20)
[2023-09-26] MEDS: CHOLECALCIFEROL 1,000 UNIT TABLET (VIT D3) PO SCH (18:33)
[2023-09-26 20:00] VITALS: BP 156/76; TEMP 97.8; O2SAT 96
[2023-09-26] MEDS: LamoTRIgine 25 MG TABLET PO SCH (21:25)
[2023-09-26] MEDS: ATORVASTATIN 10 MG TABLET PO SCH (21:26)
[2023-09-26] MEDS: BENZTROPINE MESYLATE (1 MG) 1 MG TABLET PO SCH (21:34)
[2023-09-26] MEDS: BENAZEPRIL HCL 20 MG TABLET PO SCH (22:00)
[2023-09-26] MEDS: INSULIN REGULAR, HUMAN 100 UNIT/ML 3 ML VIAL SQ PRN (23:32)
[2023-09-27] MEDS: BLOOD SUGAR DIAGNOSTIC 1 EACH STRIP IN SCH ×4 (06:59→21:41)
[2023-09-27] MEDS: INSULIN REGULAR, HUMAN 100 UNIT/ML 3 ML VIAL SQ PRN ×2 (07:00→23:10)
[2023-09-27 07:07] LABS: CALCIUM, SERUM 9.7 mg/dL (8.5-10.1); CARBON DIOXIDE 24 mmol/L (21-32); CHLORIDE 101 mmol/L (98-107); CREATININE 0.6 mg/dL (0.6-1.3); GLUCOSE 147 mg/dL (74-106); MAGNESIUM 1.9 mg/dL (1.8-2.4); POTASSIUM 3.7 mmol/L (3.5-5.1); SODIUM SERUM 135 mmol/L (136-145); UREA NITROGEN, BLOOD 9 mg/dL (7-18)
[2023-09-27 07:30] VITALS: BP 150/94; TEMP 97.1; O2SAT 96
[2023-09-27 07:31] LABS: APPEARANCE,URINE CLEAR (CLEAR); BILIRUBIN,URINE NEGATIVE (NEGATIVE); BLOOD, URINE NEGATIVE Ery/uL (NEGATIVE); COLOR,URINE YELLOW (YELLOW); KETONES,URINE NEGATIVE (NEGATIVE); LEUKOCYTE ESTERASE ,URINE NEGATIVE (NEGATIVE); NITRITE, URINE NEGATIVE (NEGATIVE); PH,URINE 7.5 (5.0-8.0); PROTEIN,URINE NEGATIVE (NEGATIVE); UGLUCOSE NEGATIVE (NEGATIVE); UROBILINOGEN,URINE 0.2 EU/dL (0.2)
[2023-09-27] MEDS: PANTOPRAZOLE 40 MG TABLET.DR PO SCH (07:35)
[2023-09-27 07:39] LABS: THYROID STIMULATING HORMONE 2.879 uIU/mL (0.358-3.74); URIC ACID 3.4 mg/dL (2.6-7.2)
[2023-09-27] MEDS: BENZTROPINE MESYLATE (1 MG) 1 MG TABLET PO SCH ×2 (08:11→21:32)
[2023-09-27] MEDS: SODIUM CHLORIDE 1000 MG TABLET PO SCH ×3 (08:11→17:07)
[2023-09-27] MEDS: risperiDONE 1 MG TABLET PO SCH ×3 (08:11→21:32)
[2023-09-27] MEDS: ASPIRIN 81 MG TAB.CHEW PO SCH (08:11)
[2023-09-27] MEDS: FLUDROCORTISONE 0.1 MG TABLET PO SCH (08:11)
[2023-09-27] MEDS: AMLODIPINE BESYLATE 5 MG TABLET PO SCH (08:12)
[2023-09-27] MEDS: LamoTRIgine 25 MG TABLET PO SCH ×2 (08:12→21:32)
[2023-09-27] MEDS: ENOXAPARIN SODIUM 40 MG/0.4 ML DISP.SYRIN SQ SCH (15:16)
[2023-09-27 16:00] VITALS: BP 159/84; TEMP 98.6; O2SAT 95
[2023-09-27] MEDS ORDERED: ENOX40DI SQ (16:38)
[2023-09-27] MEDS: CHOLECALCIFEROL 1,000 UNIT TABLET (VIT D3) PO SCH (17:07)
[2023-09-27 20:00] VITALS: BP 168/82; TEMP 98.2; O2SAT 93
[2023-09-27] MEDS: ATORVASTATIN 10 MG TABLET PO SCH (21:32)
[2023-09-27] MEDS: BENAZEPRIL HCL 20 MG TABLET PO SCH (21:33)
[2023-09-28] MEDS: BLOOD SUGAR DIAGNOSTIC 1 EACH STRIP IN SCH ×2 (05:55→11:47)
[2023-09-28 07:30] VITALS: BP 156/83; TEMP 98.6; O2SAT 98
[2023-09-28] MEDS: PANTOPRAZOLE 40 MG TABLET.DR PO SCH (07:39)
[2023-09-28] MEDS: ASPIRIN 81 MG TAB.CHEW PO SCH (08:23)
[2023-09-28] MEDS: SODIUM CHLORIDE 1000 MG TABLET PO SCH ×2 (08:23→12:13)
[2023-09-28] MEDS: FLUDROCORTISONE 0.1 MG TABLET PO SCH (08:23)
[2023-09-28] MEDS: risperiDONE 1 MG TABLET PO SCH (08:23)
[2023-09-28] MEDS: LamoTRIgine 25 MG TABLET PO SCH (08:23)
[2023-09-28] MEDS: BENZTROPINE MESYLATE (1 MG) 1 MG TABLET PO SCH (08:23)
[2023-09-28 08:36] VITALS: BP 156/83
[2023-09-28] MEDS: AMLODIPINE BESYLATE 5 MG TABLET PO SCH (08:36)
== END 2023-09-28 13:30 | DRG 536 ==
LOC: ER 12:50 → MED 18:31
PROVIDERS: ADMIT Nurse Practitioner Family; ATTEND Nurse Practitioner Family
DX: S32.591A Other specified fracture of right pubis, initial encounter for closed fracture (principal); E87.1 Hypo-osmolality and hyponatremia; W01.0XXA Fall on same level from slipping, tripping and stumbling without subsequent striking against object, initial encounter; E11.9 Type 2 diabetes mellitus without complications; D72.829 Elevated white blood cell count, unspecified; E78.5 Hyperlipidemia, unspecified; F20.9 Schizophrenia, unspecified; F31.9 Bipolar disorder, unspecified; I10 Essential (primary) hypertension; Z87.891 Personal history of nicotine dependence; Z88.0 Allergy status to penicillin; Z79.84 Long term (current) use of oral hypoglycemic drugs; Z20.822 Contact with and (suspected) exposure to COVID-19; Y93.9 Activity, unspecified; Y92.129 Unspecified place in nursing home as the place of occurrence of the external cause; F43.9 Reaction to severe stress, unspecified
CPT/HCPCS: 36415; 71045-TC; 72192-TC; 73521; 80048-TC; 80061-TC; 82962-TC; 83735-TC; 83935-TC; 84100-TC; 84300-TC; 84439-TC; 84443-TC; 84550-TC; 85025-TC; 85730-TC; 97110-TC; 97116-TC; 97530-TC; A4223; G0378; J1650; J1815; J7030

== ENCOUNTER 2023-10-26 15:07 | Inpatient (IN) | payer MEDICARE, OTHER ==
[~2023-10-26] VITALS: Ht 152.4 cm; Wt 67.6 kg
[~2023-10-26 15:07] MED LIST changes: +AMLO-212 PO; +ASPI-1169 PO; -ASPI-1420 PO; +BENA20TA9 PO; -BLOO-668 IN; -DEXT50DI8 IV; -INSU100V3 SQ; +LORA-259 PO; +NA P133E RC; -PYRI-6 PO; +RISP0.2515 PO; -RISP1TAB7 PO; +XEROFORM TD; +ZOLP5TAB2 PO
[2023-10-26 16:42] LABS: BASOPHILS % (AUTO) 0.2 % (0.0-2.0); EOSINOPHILS # (AUTO) 0.1 K/uL (0.0-0.7); EOSINOPHILS % (AUTO) 0.7 % (0.0-6.0); HEMATOCRIT 36 % (33-45); LYMPHOCYTES # (AUTO) 0.9 K/uL (0.8-4.8); MEAN CORPUSCULAR HEMOGLOBIN 29 PG (26.0-33.0); MEAN CORPUSCULAR HGB CONC 33 g/dl (31.0-36.0); MEAN CORPUSCULAR VOLUME 86 fL (82-100); MONOCYTES # (AUTO) 1.3 K/uL (0.1-1.30); MONOCYTES % (AUTO) 9.7 % (2.0-12.0); NEUTROPHILS # (AUTO) 10.7 K/uL (1.8-8.9); NEUTROPHILS % (AUTO) 82.4 % (43.0-81.0); PLATELET COUNT (AUTO) 256 K/uL (150-450); RED BLOOD CELL COUNT(AUTO) 4.21 MIL/uL (4.0-5.2); RED CELL DISTRIBUTION WIDTH 14.1 % (11.5-15.0)
[2023-10-26 17:01] LABS: CALCIUM, SERUM 9.6 mg/dL (8.5-10.1); CREATININE 0.6 mg/dL (0.6-1.3); POTASSIUM 4.1 mmol/L (3.5-5.1)
[2023-10-26 17:11] LABS: LACTIC ACID 1.4 mmol/L (0.4-2.0)
[2023-10-26 17:14] LABS: ALBUMIN 3.4 g/dL (3.4-5.0); BILIRUBIN,TOTAL 0.3 mg/dL (0.2-1.0); TOTAL PROTEIN, SERUM 7.1 g/dL (6.4-8.2)
[2023-10-26 17:45] LABS: APPEARANCE,URINE CLEAR (CLEAR); BILIRUBIN,URINE NEGATIVE (NEGATIVE); BLOOD, URINE NEGATIVE Ery/uL (NEGATIVE); COLOR,URINE YELLOW (YELLOW); KETONES,URINE NEGATIVE (NEGATIVE); LEUKOCYTE ESTERASE ,URINE NEGATIVE (NEGATIVE); NITRITE, URINE NEGATIVE (NEGATIVE); PROTEIN,URINE NEGATIVE (NEGATIVE); UGLUCOSE NEGATIVE (NEGATIVE); UROBILINOGEN,URINE 0.2 EU/dL (0.2)
[2023-10-26 20:25] VITALS: BP 170/98; TEMP 98.2; O2SAT 97
[2023-10-26] MEDS ORDERED: ZOLPIDEM TARTRATE 5 MG TABLET PO PRN (23:00)
[2023-10-26] MEDS ORDERED: ACETAMINOPHEN 325 MG TABLET PO PRN (23:00)
[2023-10-26] MEDS ORDERED: MAGNESIUM HYDROXIDE 30 ML UDC PO PRN (23:00)
[2023-10-26] MEDS ORDERED: ONDANSETRON HCL/PF 4 MG/2 ML VIAL IVP PRN (23:00)
[2023-10-26] MEDS ORDERED: Z GUARD REMEDY 4 OZ OINT TP PRN (23:00)
[2023-10-26] MEDS ORDERED: MAG HYDROX/AL HYDROX/SIMETH 30 ML UDC PO PRN (23:00)
[2023-10-26] MEDS: IV 1/2NS 1000 ML 1,000 ML IV PRN (23:37)
[2023-10-27] VITALS: BP 160/79; TEMP 98.4; O2SAT 98
[2023-10-27] MEDS ORDERED: MAGNESIUM HYDROXIDE 30 ML UDC PO PRN
[2023-10-27] MEDS ORDERED: BISACODYL SUPP (10 MG) 10 MG/SUPP.RECT SUPP.RECT RC PRN
[2023-10-27] MEDS ORDERED: DEXTROSE 50%-WATER 50 ML DISP.SYRIN IV PRN
[2023-10-27] MEDS ORDERED: ACETAMINOPHEN 325 MG TABLET PO PRN
[2023-10-27] MEDS ORDERED: ZOLPIDEM TARTRATE 5 MG TABLET PO PRN
[2023-10-27] MEDS ORDERED: NA PHOS,M-B/NA PHOS,DI-BA 1 EA ENEMA RC PRN
[2023-10-27] MEDS: BLOOD SUGAR DIAGNOSTIC 1 EACH STRIP IN SCH (00:23)
[2023-10-27 00:53] LABS: THYROID STIMULATING HORMONE 1.573 uIU/mL (0.358-3.74)
[2023-10-27] MEDS ORDERED: ASPIRIN 81 MG TAB.CHEW PO ONE (02:30)
[2023-10-27] MEDS: hydrALAZINE HCL IV 20 MG VIAL IV PRN (03:27)
[2023-10-27 04:00] VITALS: BP 155/86; TEMP 98.5; O2SAT 97
[2023-10-27] MEDS ORDERED: ASPIRIN 300 MG/SUPP.RECT RC ONE (04:25)
[2023-10-27] MEDS: ASPIRIN 300 MG/SUPP.RECT RC ONE (04:31)
[2023-10-27 07:02] LABS: BASOPHILS % (AUTO) 0.2 % (0.0-2.0); EOSINOPHILS # (AUTO) 0.1 K/uL (0.0-0.7); HEMATOCRIT 36 % (33-45); HEMOGLOBIN 12.2 g/dL (11.5-14.8); LYMPHOCYTES # (AUTO) 1.3 K/uL (0.8-4.8); LYMPHOCYTES % (AUTO) 14.3 % (20.0-44.0); MEAN CORPUSCULAR HEMOGLOBIN 29 PG (26.0-33.0); MEAN CORPUSCULAR HGB CONC 34 g/dl (31.0-36.0); MEAN CORPUSCULAR VOLUME 85 fL (82-100); NEUTROPHILS # (AUTO) 6.5 K/uL (1.8-8.9); NEUTROPHILS % (AUTO) 73.5 % (43.0-81.0); PLATELET COUNT (AUTO) 254 K/uL (150-450); RED BLOOD CELL COUNT(AUTO) 4.26 MIL/uL (4.0-5.2); RED CELL DISTRIBUTION WIDTH 14.1 % (11.5-15.0); WHITE BLOOD COUNT (AUTO) 8.8 K/uL (4.3-11.0)
[2023-10-27 07:15] LABS: CALCIUM, SERUM 9.4 mg/dL (8.5-10.1); CARBON DIOXIDE 25 mmol/L (21-32); CHLORIDE 100 mmol/L (98-107); CREATININE 0.5 mg/dL (0.6-1.3); GLUCOSE 104 mg/dL (74-106); MAGNESIUM 1.9 mg/dL (1.8-2.4); PHOSPHORUS 2.8 mg/dL (2.5-4.9); POTASSIUM 3.5 mmol/L (3.5-5.1); SODIUM SERUM 136 mmol/L (136-145); UREA NITROGEN, BLOOD 9 mg/dL (7-18)
[2023-10-27 07:35] LABS: CHOLESTEROL 142 mg/dL (<200); HDL CHOLESTEROL 78 mg/dL (40-60); LDL 49 mg/dL (0-99); THYROID STIMULATING HORMONE 1.732 uIU/mL (0.358-3.74); TRIGLYCERIDES 33 mg/dL (30-150)
[2023-10-27 08:00] VITALS: BP 170/101; TEMP 97.9; O2SAT 97
[2023-10-27] MEDS: risperiDONE 0.25 MG TABLET PO SCH (08:10)
[2023-10-27] MEDS: BENZTROPINE MESYLATE (1 MG) 1 MG TABLET PO SCH (08:11)
[2023-10-27] MEDS: SODIUM CHLORIDE 1000 MG TABLET PO SCH (08:11)
[2023-10-27] MEDS: MAGNESIUM OXIDE 400 MG TABLET PO SCH (08:11)
[2023-10-27] MEDS: PANTOPRAZOLE 40 MG TABLET.DR PO SCH (08:11)
[2023-10-27] MEDS: ASPIRIN EC 81 MG TABLET.DR PO SCH (08:11)
[2023-10-27] MEDS: AMLODIPINE BESYLATE 5 MG TABLET PO SCH (08:11)
[2023-10-27] MEDS: LamoTRIgine 25 MG TABLET PO SCH (08:11)
[2023-10-27] MEDS: FLUDROCORTISONE 0.1 MG TABLET PO SCH (08:11)
[2023-10-27] MEDS ORDERED: ASPIRIN 81 MG TAB.CHEW PO SCH (09:00)
[2023-10-27] MEDS ORDERED: risperiDONE 1 MG TABLET PO SCH (09:00)
[2023-10-27] MEDS: ENOXAPARIN SODIUM 40 MG/0.4 ML DISP.SYRIN SQ SCH (09:17)
[2023-10-27] MEDS: INSULIN REGULAR, HUMAN 100 UNIT/ML 3 ML VIAL SQ PRN (11:35)
[2023-10-27 12:08] VITALS: BP 128/67; TEMP 98.1; O2SAT 95
[2023-10-27 16:00] VITALS: BP 144/71; TEMP 98.3; O2SAT 98
[2023-10-27] MEDS ORDERED: Medication Not On Formulary EA (Cranberry Extract (Cranberry) 450 MG) PO SCH (17:00)
[2023-10-27] MEDS: CHOLECALCIFEROL 1,000 UNIT TABLET (VIT D3) PO SCH (17:05)
[2023-10-27] MEDS: risperiDONE 1 MG TABLET PO SCH ×2 (17:05→21:33)
[2023-10-27 20:00] VITALS: BP 146/72; TEMP 97.7; O2SAT 95
[2023-10-27] MEDS: SENNOSIDES 8.6 MG TABLET PO SCH (21:33)
[2023-10-27] MEDS: ATORVASTATIN 10 MG TABLET PO SCH (21:33)
[2023-10-27] MEDS: BENAZEPRIL HCL 20 MG TABLET PO SCH (21:34)
[2023-10-28 04:00] VITALS: BP 131/93; TEMP 97.9; O2SAT 98
[2023-10-28 06:52] LABS: BASOPHILS % (AUTO) 0.4 % (0.0-2.0); EOSINOPHILS # (AUTO) 0.1 K/uL (0.0-0.7); EOSINOPHILS % (AUTO) 0.6 % (0.0-6.0); HEMATOCRIT 32 % (33-45); HEMOGLOBIN 11.2 g/dL (11.5-14.8); LYMPHOCYTES # (AUTO) 1.3 K/uL (0.8-4.8); LYMPHOCYTES % (AUTO) 11.7 % (20.0-44.0); MEAN CORPUSCULAR HEMOGLOBIN 29 PG (26.0-33.0); MEAN CORPUSCULAR HGB CONC 35 g/dl (31.0-36.0); MEAN CORPUSCULAR VOLUME 84 fL (82-100); MONOCYTES # (AUTO) 1.4 K/uL (0.1-1.30); MONOCYTES % (AUTO) 12.3 % (2.0-12.0); NEUTROPHILS # (AUTO) 8.2 K/uL (1.8-8.9); PLATELET COUNT (AUTO) 234 K/uL (150-450); RED BLOOD CELL COUNT(AUTO) 3.82 MIL/uL (4.0-5.2); RED CELL DISTRIBUTION WIDTH 14.1 % (11.5-15.0)
[2023-10-28 07:09] LABS: CALCIUM, SERUM 8.8 mg/dL (8.5-10.1); CREATININE 0.7 mg/dL (0.6-1.3); POTASSIUM 3.4 mmol/L (3.5-5.1)
[2023-10-28 08:00] VITALS: BP 156/57; TEMP 97.7; O2SAT 98
[2023-10-28] MEDS: POTASSIUM CHLORIDE 20 MEQ TAB.PRT.SR PO ONE (09:09)
[2023-10-28 16:00] VITALS: BP 148/65; TEMP 98.6; O2SAT 98
[2023-10-28 20:00] VITALS: BP 159/84; TEMP 97.3; O2SAT 97
[2023-10-29] MEDS: LORAZEPAM 1 MG TABLET PO PRN (00:49)
[2023-10-29 04:00] VITALS: BP 175/81; TEMP 97; O2SAT 97
[2023-10-29] MEDS: CLONIDINE HCL 0.1 MG TABLET PO PRN (04:56)
[2023-10-29 06:43] LABS: BASOPHILS % (AUTO) 0.3 % (0.0-2.0); EOSINOPHILS # (AUTO) 0.1 K/uL (0.0-0.7); EOSINOPHILS % (AUTO) 1.1 % (0.0-6.0); HEMATOCRIT 33 % (33-45); LYMPHOCYTES # (AUTO) 1.4 K/uL (0.8-4.8); LYMPHOCYTES % (AUTO) 11.4 % (20.0-44.0); MEAN CORPUSCULAR HEMOGLOBIN 29 PG (26.0-33.0); MEAN CORPUSCULAR HGB CONC 34 g/dl (31.0-36.0); MEAN CORPUSCULAR VOLUME 85 fL (82-100); MONOCYTES # (AUTO) 1.6 K/uL (0.1-1.30); MONOCYTES % (AUTO) 12.7 % (2.0-12.0); NEUTROPHILS # (AUTO) 9.2 K/uL (1.8-8.9); NEUTROPHILS % (AUTO) 74.5 % (43.0-81.0); PLATELET COUNT (AUTO) 242 K/uL (150-450); RED BLOOD CELL COUNT(AUTO) 3.84 MIL/uL (4.0-5.2); WHITE BLOOD COUNT (AUTO) 12.3 K/uL (4.3-11.0)
[2023-10-29 07:18] LABS: CALCIUM, SERUM 9.1 mg/dL (8.5-10.1); CREATININE 0.7 mg/dL (0.6-1.3); POTASSIUM 3.3 mmol/L (3.5-5.1)
[2023-10-29 08:00] VITALS: BP 159/84; TEMP 97.3; O2SAT 97
[2023-10-29 09:21] VITALS: BP 159/84
[2023-10-29] MEDS: AMLODIPINE BESYLATE 5 MG TABLET PO SCH (09:21)
[2023-10-29] MEDS ORDERED: AMLO-212 PO (09:38)
[2023-10-29] MEDS: POTASSIUM CHLORIDE 20 MEQ TAB.PRT.SR PO SCH (09:53)
== END 2023-10-29 15:44 | DRG 281 ==
LOC: ER 15:13 → TELE 19:40 → TELE1 20:18 → MEDSG1 10-27 18:21
PROVIDERS: ADMIT Student in an Organized Health Care Education/Training Program; ATTEND Internal Medicine
DX: I16.0 Hypertensive urgency (principal); I21.A1 Myocardial infarction type 2; E87.1 Hypo-osmolality and hyponatremia; I10 Essential (primary) hypertension; F31.9 Bipolar disorder, unspecified; F79 Unspecified intellectual disabilities; Z96.641 Presence of right artificial hip joint; Z88.0 Allergy status to penicillin; Z79.01 Long term (current) use of anticoagulants; Z79.82 Long term (current) use of aspirin; Z79.51 Long term (current) use of inhaled steroids; Z79.899 Other long term (current) drug therapy; Z79.84 Long term (current) use of oral hypoglycemic drugs; F20.9 Schizophrenia, unspecified; E78.5 Hyperlipidemia, unspecified; E11.9 Type 2 diabetes mellitus without complications; Z87.891 Personal history of nicotine dependence; D72.829 Elevated white blood cell count, unspecified
CPT/HCPCS: 36415; 71045-TC; 80048-TC; 80053-TC; 80061-TC; 82962-TC; 83605-TC; 83735-TC; 83880; 84100-TC; 84443-TC; 84484-TC; 85025-TC; 87081-TC; 92526; 92611-TC; 93307-TC; 97110-TC; 97116-TC; 97530-TC; A4223; A6253; G0378; J0360; J1650; J1815; J3490

== ENCOUNTER 2024-08-26 17:10 | Inpatient (IN) | payer MEDICARE, OTHER ==
[~2024-08-26] VITALS: Ht 162.6 cm; Wt 64.1 kg
[~2024-08-26 17:10] MED LIST changes: -POTA8TAB3 PO; -XEROFORM TD
[2024-08-26 18:39] LABS: BASOPHILS # (AUTO) 0.1 K/uL (0.0-0.2); BASOPHILS % (AUTO) 0.7 % (0.0-2.0); EOSINOPHILS # (AUTO) 0.2 K/uL (0.0-0.7); EOSINOPHILS % (AUTO) 2.5 % (0.0-6.0); HEMATOCRIT 36 % (33-45); LYMPHOCYTES # (AUTO) 1.6 K/uL (0.8-4.8); LYMPHOCYTES % (AUTO) 22.2 % (20.0-44.0); MEAN CORPUSCULAR HEMOGLOBIN 28 PG (26.0-33.0); MEAN CORPUSCULAR HGB CONC 34 g/dl (31.0-36.0); MEAN CORPUSCULAR VOLUME 84 fL (82-100); MONOCYTES # (AUTO) 0.9 K/uL (0.1-1.30); MONOCYTES % (AUTO) 12.5 % (2.0-12.0); NEUTROPHILS # (AUTO) 4.4 K/uL (1.8-8.9); NEUTROPHILS % (AUTO) 62.1 % (43.0-81.0); PLATELET COUNT (AUTO) 246 K/uL (150-450); RED BLOOD CELL COUNT(AUTO) 4.23 MIL/uL (4.0-5.2); RED CELL DISTRIBUTION WIDTH 13.6 % (11.5-15.0); WHITE BLOOD COUNT (AUTO) 7.1 K/uL (4.3-11.0)
[2024-08-26 18:53] LABS: CALCIUM, SERUM 9.1 mg/dL (8.5-10.1); CARBON DIOXIDE 29 mmol/L (21-32); CHLORIDE 98 mmol/L (98-107); CREATININE 0.8 mg/dL (0.6-1.3); GLUCOSE 111 mg/dL (74-106); POTASSIUM 3.3 mmol/L (3.5-5.1); SODIUM SERUM 133 mmol/L (136-145); UREA NITROGEN, BLOOD 15 mg/dL (7-18)
[2024-08-26] MEDS ORDERED: MAGNESIUM HYDROXIDE 30 ML UDC PO PRN (21:00)
[2024-08-26] MEDS ORDERED: ONDANSETRON HCL/PF 4 MG/2 ML VIAL IVP PRN (21:00)
[2024-08-26] MEDS ORDERED: Z GUARD REMEDY 4 OZ OINT TP PRN (21:00)
[2024-08-26] MEDS ORDERED: ACETAMINOPHEN 325 MG TABLET PO PRN (21:00)
[2024-08-26] MEDS ORDERED: MAG HYDROX/AL HYDROX/SIMETH 30 ML UDC PO PRN (21:00)
[2024-08-26] MEDS ORDERED: CLONIDINE HCL 0.1 MG TABLET ONE (22:54)
[2024-08-26] MEDS: CLONIDINE HCL 0.1 MG TABLET PO PRN (22:56)
[2024-08-26] MEDS: POTASSIUM CHLORIDE 20 MEQ TAB.PRT.SR PO ONE (23:00)
[2024-08-27] MEDS ORDERED: POTASSIUM CHLORIDE 20 MEQ TAB.PRT.SR PO ONE (00:07)
[2024-08-27] MEDS: ENOXAPARIN SODIUM 40 MG/0.4 ML DISP.SYRIN SQ SCH (01:00)
[2024-08-27] MEDS ORDERED: ENOXAPARIN SODIUM 40 MG/0.4 ML DISP.SYRIN SQ ONE (03:34)
[2024-08-27 06:14] LABS: BASOPHILS # (AUTO) 0.1 K/uL (0.0-0.2); BASOPHILS % (AUTO) 1.1 % (0.0-2.0); EOSINOPHILS # (AUTO) 0.1 K/uL (0.0-0.7); EOSINOPHILS % (AUTO) 1.1 % (0.0-6.0); HEMATOCRIT 38 % (33-45); HEMOGLOBIN 12.7 g/dL (11.5-14.8); LYMPHOCYTES # (AUTO) 1.9 K/uL (0.8-4.8); LYMPHOCYTES % (AUTO) 23.6 % (20.0-44.0); MEAN CORPUSCULAR HEMOGLOBIN 28 PG (26.0-33.0); MEAN CORPUSCULAR HGB CONC 34 g/dl (31.0-36.0); MEAN CORPUSCULAR VOLUME 84 fL (82-100); MONOCYTES # (AUTO) 0.8 K/uL (0.1-1.30); MONOCYTES % (AUTO) 9.7 % (2.0-12.0); NEUTROPHILS # (AUTO) 5.2 K/uL (1.8-8.9); NEUTROPHILS % (AUTO) 64.5 % (43.0-81.0); PLATELET COUNT (AUTO) 259 K/uL (150-450); RED CELL DISTRIBUTION WIDTH 13.5 % (11.5-15.0)
[2024-08-27 06:20] LABS: CALCIUM, SERUM 9.5 mg/dL (8.5-10.1); CREATININE 0.8 mg/dL (0.6-1.3); MAGNESIUM 1.8 mg/dL (1.8-2.4); PHOSPHORUS 2.9 mg/dL (2.5-4.9); POTASSIUM 3.6 mmol/L (3.5-5.1)
[2024-08-27] MEDS ORDERED: AMLO-213 PO (08:55)
[2024-08-27 10:15] VITALS: BP 178/82; TEMP 97.7; O2SAT 96
[2024-08-27] MEDS: PANTOPRAZOLE 40 MG TABLET.DR PO SCH (11:19)
[2024-08-27 12:00] VITALS: BP 151/79; TEMP 98; O2SAT 98
[2024-08-27] MEDS ORDERED: LOSARTAN POTASSIUM 25 MG TABLET PO SCH (13:00)
[2024-08-27 14:10] VITALS: BP 151/79; TEMP 98; O2SAT 98
[2024-08-27] MEDS: BENAZEPRIL HCL 20 MG TABLET PO SCH (14:11)
[2024-08-27 16:00] VITALS: BP 165/85; TEMP 97.5; O2SAT 97
[2024-08-27 20:00] VITALS: BP 151/78; TEMP 97.5; O2SAT 97
[2024-08-28] VITALS: BP 176/86; TEMP 97.7; O2SAT 94
[2024-08-28] MEDS: ZOLPIDEM TARTRATE 5 MG TABLET PO PRN (02:45)
[2024-08-28 04:00] VITALS: BP 170/68; TEMP 97.7; O2SAT 97
[2024-08-28 08:00] VITALS: BP 174/88; TEMP 97.7; O2SAT 98
[2024-08-28] MEDS: BENAZEPRIL HCL 20 MG TABLET PO SCH (08:35)
[2024-08-28] MEDS: AMLODIPINE BESYLATE 10 MG TABLET PO SCH (08:35)
[2024-08-28 12:00] VITALS: BP 149/56; TEMP 98.1; O2SAT 97
[2024-08-28 12:42] LABS: APPEARANCE,URINE CLEAR (CLEAR); BILIRUBIN,URINE NEGATIVE (NEGATIVE); BLOOD, URINE NEGATIVE Ery/uL (NEGATIVE); COLOR,URINE YELLOW (YELLOW); KETONES,URINE NEGATIVE (NEGATIVE); LEUKOCYTE ESTERASE ,URINE TRACE (NEGATIVE); NITRITE, URINE NEGATIVE (NEGATIVE); PH,URINE 7.5 (5.0-8.0); PROTEIN,URINE NEGATIVE (NEGATIVE); UGLUCOSE NEGATIVE (NEGATIVE)
[2024-08-28 12:43] LABS: ADD URINE CULTURE NO; BACTERIA,URINE Few /HPF (None Seen); RBC,URINE 0-2 /HPF (0-2); SQUAMOUS EPITHELIAL CELL,UR Rare /HPF (None Seen)
[2024-08-28 16:00] VITALS: BP_SYST 139; BP_SYST 89; BP_DIAS 40; BP_DIAS 72; TEMP 98.1; TEMP 99; O2SAT 94
[2024-08-28 20:00] VITALS: BP 135/64; TEMP 97.5; O2SAT 95
[2024-08-29] VITALS: BP_SYST 153; BP_SYST 180; BP_DIAS 103; BP_DIAS 95; TEMP 98.2; O2SAT 95
[2024-08-29 04:00] VITALS: BP 170/100; TEMP 97.6; TEMP 97.7; O2SAT 97
[2024-08-29 07:30] VITALS: BP 162/88; TEMP 97.9; O2SAT 97
[2024-08-29] MEDS: hydrALAZINE HCL 10 MG TABLET PO SCH (09:06)
[2024-08-29 12:00] VITALS: BP 161/79; TEMP 97.7; O2SAT 95
[2024-08-29 13:39] VITALS: BP 166/84
== END 2024-08-29 18:06 | DRG 281 ==
LOC: ER 17:13 → TRANSITION 08-27 06:11 → TELE 08-27 09:24
PROVIDERS: ADMIT Nurse Practitioner Family; ATTEND Nurse Practitioner Acute Care
DX: I16.0 Hypertensive urgency (principal); E87.1 Hypo-osmolality and hyponatremia; I21.A1 Myocardial infarction type 2; E87.6 Hypokalemia; J44.9 Chronic obstructive pulmonary disease, unspecified; I25.5 Ischemic cardiomyopathy; F39 Unspecified mood [affective] disorder; I10 Essential (primary) hypertension; E78.5 Hyperlipidemia, unspecified; E11.9 Type 2 diabetes mellitus without complications; F25.9 Schizoaffective disorder, unspecified; F79 Unspecified intellectual disabilities; Z87.891 Personal history of nicotine dependence; Z86.61 Personal history of infections of the central nervous system; Z96.641 Presence of right artificial hip joint; Z88.0 Allergy status to penicillin; Z79.01 Long term (current) use of anticoagulants; Z79.82 Long term (current) use of aspirin; Z79.84 Long term (current) use of oral hypoglycemic drugs; Z79.899 Other long term (current) drug therapy
CPT/HCPCS: 36415; 80048-TC; 81001; 83735-TC; 84100-TC; 84484-TC; 85025-TC; 93307-TC; 97110-TC; 97116-TC; 97530-TC; G0378; J1650